=== PATIENT | female | born 1950 | race Caucasian/White ===

== ENCOUNTER → 2020-12-30 | Outpatient (CLI) | payer MEDICARE | LOC: KOH-I 10:07 | DX: R06.2 Wheezing (principal) | CPT/HCPCS: 71046 ==

== ENCOUNTER → 2021-10-13 | Outpatient (CLI) | payer MEDICARE | LOC: KOH-I 13:42 | DX: J20.9 Acute bronchitis, unspecified (principal) | CPT/HCPCS: 71046 ==

== ENCOUNTER → 2022-01-11 | Outpatient (CLI) | payer MEDICARE | LOC: KOH-I 08:00 | DX: J41.1 Mucopurulent chronic bronchitis (principal); N20.0 Calculus of kidney | CPT/HCPCS: 71250 ==

== ENCOUNTER → 2022-01-27 | Outpatient (CLI) | payer MEDICARE | LOC: KOH-I 10:05 | DX: K76.89 Other specified diseases of liver (principal) | CPT/HCPCS: 76705 ==

== ENCOUNTER → 2022-02-28 | Outpatient (CLI) | payer MEDICARE | LOC: HEART 5 14:02 | DX: R05.3 Chronic cough (principal); R06.02 Shortness of breath | CPT/HCPCS: 94060; 94729 ==